=== PATIENT | male | born 1990 | race Caucasian/White ===

== ENCOUNTER 2022-03-23 17:47 | Emergency (ER) | payer SELFPAY ==
[~2022-03-23] VITALS: Ht 167.6 cm; Wt 73.0 kg
[2022-03-23 17:50] VITALS: BP 148/94
== END 2022-03-23 19:00 | disposition home or self-care (01) ==
LOC: ER 17:47
DX: T43.621A Poisoning by amphetamines, accidental (unintentional), initial encounter (principal); R45.1 Restlessness and agitation; R03.0 Elevated blood-pressure reading, without diagnosis of hypertension; F15.129 Other stimulant abuse with intoxication, unspecified; Y92.89 Other specified places as the place of occurrence of the external cause
CPT/HCPCS: 99283

== ENCOUNTER 2022-12-25 19:55 | Emergency (ER) | payer MEDICAID ==
[~2022-12-25] VITALS: Ht 177.8 cm; Wt 77.0 kg
[2022-12-25 19:59] VITALS: BP 120/72
[2022-12-25] MEDS ORDERED: ONDA4TAB50 MT (20:06)
[2022-12-25] MEDS ORDERED: NALO4SPR BOTHNSTRLS (20:06)
== END 2022-12-25 20:45 | disposition left against medical advice (07) ==
LOC: ER 19:55
DX: T50.991A Poisoning by other drugs, medicaments and biological substances, accidental (unintentional), initial encounter (principal); Y92.89 Other specified places as the place of occurrence of the external cause; F15.10 Other stimulant abuse, uncomplicated
CPT/HCPCS: 99283

== ENCOUNTER 2023-04-25 22:29 | Emergency (ER) | payer MEDICAID ==
[~2023-04-25 22:29] MED LIST: NALO4SPR BOTHNSTRLS; ONDA4TAB50 MT
[2023-04-25 22:58] VITALS: PULSE 85
== END 2023-04-25 23:03 | disposition left against medical advice (07) ==
LOC: ER 22:29
DX: R10.9 Unspecified abdominal pain (principal); Z53.21 Procedure and treatment not carried out due to patient leaving prior to being seen by health care provider
CPT/HCPCS: 99281